=== PATIENT | female | born 1995 | race Hispanic/Latino ===

== ENCOUNTER 2021-08-04 23:16 | Emergency (ER) | payer SELFPAY ==
[~2021-08-04] VITALS: Ht 165.1 cm; Wt 73.5 kg
[2021-08-05] MEDS ORDERED: IBUPROFEN 600 MG TAB PO STA (00:02)
[2021-08-05] MEDS ORDERED: IBUPROFEN 600 MG TAB ONE (00:14)
[2021-08-05] MEDS ORDERED: IBUPROFEN600 MG PO (00:52)
[2021-08-05] MEDS ORDERED: NEOMYCIN-POLYMY10 ML RIGHT EAR (00:57)
[2021-08-05] MEDS ORDERED: CORTISPORIN-TC10 M1 RIGHT EAR (00:57)
[2021-08-05] MEDS ORDERED: KETOROLAC TROMETHAMINE 60 MG/2 ML VIAL IM ONE (01:00)
[2021-08-05] MEDS ORDERED: KETOROLAC TROMETHAMINE 60 MG/2 ML VIAL ONE (01:16)
== END 2021-08-05 01:25 | disposition home or self-care (01) ==
LOC: FSED 23:48
DX: H92.01 Otalgia, right ear (principal); H61.21 Impacted cerumen, right ear
CPT/HCPCS: 99282; J1885